=== PATIENT | female | born 1945 | race Two or more races ===

== ENCOUNTER 2016-10-06 17:45 | Inpatient (IN) | payer MEDICARE, MEDICAID ==
[~2016-10-06] VITALS: Ht 139.7 cm; Wt 54.4 kg
[2016-10-06] MEDS ORDERED: DONE5TAB30 PO (18:25)
[2016-10-06] MEDS ORDERED: BUDE10.22 INH (18:25)
[2016-10-06] MEDS ORDERED: CITA20TA9 PO (18:25)
[2016-10-06] MEDS ORDERED: CETI10CA PO (18:25)
[2016-10-06] MEDS ORDERED: CLON0.1T PO (18:25)
[2016-10-06] MEDS ORDERED: DIVA125T2 PO (18:25)
[2016-10-06 18:42] LABS: BLOOD UREA NITROGEN 12 mg/dL (7-18)
[2016-10-06] MEDS ORDERED: POTASSIUM CHLORIDE 20 MEQ TAB.ER.PRT ONE (18:58)
[2016-10-06] MEDS ORDERED: POTASSIUM CHLORIDE 20 MEQ TAB.ER.PRT PO ONE (19:00)
[2016-10-06] MEDS ORDERED: NS + 40MEQ KCL 1,000 ML IV SCH (20:30)
[2016-10-06] MEDS ORDERED: NS + 40MEQ KCL 1,000 ML IV ONE (20:41)
[2016-10-06] MEDS ORDERED: GUAIFENESIN/DM 200-20MG, 10ML UDC PO PRN (21:30)
[2016-10-06] MEDS ORDERED: ONDANSETRON 2MG/ML, 2ML IVPush PRN (21:30)
[2016-10-06 22:25] VITALS: BP 95/57
[2016-10-06] MEDS: DONEPEZIL 5 MG TABLET PO SCH (22:47)
[2016-10-06] MEDS: ENOXAPARIN 40 MG/0.4 ML SQ SCH (22:47)
[2016-10-07 06:35] LABS: BLOOD UREA NITROGEN 8 mg/dL (7-18)
[2016-10-07] MEDS: DIVALPROEX 125 MG TABLET.DR PO SCH ×2 (08:50→09:00)
[2016-10-07] MEDS: CITALOPRAM 20 MG TABLET PO SCH ×2 (08:50→09:00)
[2016-10-07] MEDS: CETIRIZINE 10 MG TABLET PO SCH ×2 (08:50→09:00)
[2016-10-07] MEDS: FAMOTIDINE 20 MG TABLET PO SCH ×4 (08:50→21:00)
[2016-10-07] MEDS: FLUTICASONE/VILANTEROL 100-25MCG/INH INH SCH (09:00)
[2016-10-07] MEDS: ENOXAPARIN 40 MG/0.4 ML SQ SCH (20:45)
[2016-10-07] MEDS: NS + 40MEQ KCL 1,000 ML IV SCH (20:45)
[2016-10-07] MEDS: DONEPEZIL 5 MG TABLET PO SCH (20:45)
[2016-10-07] MEDS: HALOPERIDOL 1 MG TABLET PO PRN (22:00)
[2016-10-08] MEDS ORDERED: LORazepam 2 MG/ML, 1ML ONE (01:33)
[2016-10-08 06:40] VITALS: BP 167/91
[2016-10-08 06:53] VITALS: BP 122/64
[2016-10-08 07:32] VITALS: BP 152/84
[2016-10-08] MEDS: CITALOPRAM 20 MG TABLET PO SCH (09:00)
[2016-10-08] MEDS: FLUTICASONE/VILANTEROL 100-25MCG/INH INH SCH (09:00)
[2016-10-08] MEDS: DIVALPROEX 125 MG TABLET.DR PO SCH (09:00)
[2016-10-08] MEDS: FAMOTIDINE 20 MG TABLET PO SCH (09:45)
[2016-10-08] MEDS: CETIRIZINE 10 MG TABLET PO SCH (09:45)
[2016-10-08 14:00] VITALS: BP 133/84
[2016-10-08 16:22] LABS: BLOOD UREA NITROGEN 7 mg/dL (7-18)
[2016-10-08 16:29] LABS: ASPARTATE AMINO TRANSFERASE 20 U/L (15-37)
[2016-10-08] MEDS: DIVALPROEX 125 MG CAP.SPRINK PO SCH ×2 (17:42→21:56)
[2016-10-08 20:00] VITALS: BP 151/84
[2016-10-08] MEDS: DONEPEZIL 5 MG TABLET PO SCH (21:56)
[2016-10-08] MEDS: ENOXAPARIN 40 MG/0.4 ML SQ SCH (21:56)
[2016-10-08] MEDS: NS + 40MEQ KCL 1,000 ML IV SCH ×2 (21:56→22:00)
[2016-10-09 02:00] VITALS: BP 168/94
[2016-10-09 06:57] LABS: BLOOD UREA NITROGEN 9 mg/dL (7-18)
[2016-10-09 08:14] VITALS: BP 111/76
[2016-10-09] MEDS: DIVALPROEX 125 MG CAP.SPRINK PO SCH ×2 (11:18→18:14)
[2016-10-09] MEDS: FAMOTIDINE 20 MG TABLET PO SCH ×2 (11:18→21:31)
[2016-10-09] MEDS: FLUTICASONE/VILANTEROL 100-25MCG/INH INH SCH (11:19)
[2016-10-09] MEDS: CETIRIZINE 10 MG TABLET PO SCH (11:19)
[2016-10-09 13:16] VITALS: BP 93/59
[2016-10-09] MEDS: ARIPIPRAZOLE 10 MG TABLET PO SCH (14:59)
[2016-10-09] MEDS ORDERED: DIVALPROEX 125 MG CAP.SPRINK PO SCH (17:00)
[2016-10-09 20:00] VITALS: BP 96/61
[2016-10-09] MEDS: ENOXAPARIN 40 MG/0.4 ML SQ SCH (21:31)
[2016-10-09] MEDS: ACETAMINOPHEN 325 MG TABLET PO PRN (21:31)
[2016-10-10 03:44] VITALS: BP 134/80
[2016-10-10 07:49] VITALS: BP 97/55
[2016-10-10] MEDS: ARIPIPRAZOLE 10 MG TABLET PO SCH (09:35)
[2016-10-10] MEDS: FAMOTIDINE 20 MG TABLET PO SCH ×2 (09:35→20:39)
[2016-10-10] MEDS: DIVALPROEX 125 MG CAP.SPRINK PO SCH ×3 (09:35→17:17)
[2016-10-10] MEDS: FLUTICASONE/VILANTEROL 100-25MCG/INH INH SCH (09:47)
[2016-10-10 14:47] VITALS: BP 134/68
[2016-10-10] MEDS: HALOPERIDOL 5 MG/ML IM PRN (17:45)
[2016-10-10 18:51] VITALS: BP 132/68
[2016-10-10] MEDS: ENOXAPARIN 40 MG/0.4 ML SQ SCH (20:39)
[2016-10-11 02:00] VITALS: BP 111/69
[2016-10-11 06:52] VITALS: BP 150/69
[2016-10-11] MEDS: DIVALPROEX 125 MG CAP.SPRINK PO SCH ×3 (10:02→16:57)
[2016-10-11] MEDS: ARIPIPRAZOLE 10 MG TABLET PO SCH (10:02)
[2016-10-11] MEDS: FLUTICASONE/VILANTEROL 100-25MCG/INH INH SCH (10:02)
[2016-10-11] MEDS: FAMOTIDINE 20 MG TABLET PO SCH ×2 (10:02→20:42)
[2016-10-11 10:52] LABS: ASPARTATE AMINO TRANSFERASE 13 U/L (15-37); BLOOD UREA NITROGEN 6 mg/dL (7-18)
[2016-10-11 11:46] LABS: BLOOD UREA NITROGEN 8 mg/dL (7-18)
[2016-10-11 14:15] VITALS: BP 113/67
[2016-10-11 18:49] VITALS: BP 115/72
[2016-10-11] MEDS: ENOXAPARIN 40 MG/0.4 ML SQ SCH (20:42)
[2016-10-12] MEDS: ACETAMINOPHEN 325 MG TABLET PO PRN (00:20)
[2016-10-12] MEDS ORDERED: POLYETHYLENE GLYCOL 17 GM PACKET PO PRN (03:30)
[2016-10-12 04:54] VITALS: BP 98/62
[2016-10-12 06:10] LABS: BLOOD UREA NITROGEN 14 mg/dL (7-18)
[2016-10-12 06:40] VITALS: BP 116/71
[2016-10-12] MEDS: ARIPIPRAZOLE 10 MG TABLET PO SCH (09:05)
[2016-10-12] MEDS: DIVALPROEX 125 MG CAP.SPRINK PO SCH ×3 (09:05→18:27)
[2016-10-12] MEDS: FAMOTIDINE 20 MG TABLET PO SCH ×2 (09:05→20:34)
[2016-10-12] MEDS: FLUTICASONE/VILANTEROL 100-25MCG/INH INH SCH (09:05)
[2016-10-12 12:24] VITALS: BP 156/85
[2016-10-12] MEDS: HALOPERIDOL 5 MG/ML IM PRN (12:59)
[2016-10-12] MEDS: HALOPERIDOL 1 MG TABLET PO PRN (19:15)
[2016-10-12] MEDS: ENOXAPARIN 40 MG/0.4 ML SQ SCH (20:34)
[2016-10-13 05:33] LABS: BLOOD UREA NITROGEN 10 mg/dL (7-18)
[2016-10-13 06:55] VITALS: BP 134/88
[2016-10-13] MEDS: FAMOTIDINE 20 MG TABLET PO SCH ×2 (08:10→21:37)
[2016-10-13] MEDS: ARIPIPRAZOLE 10 MG TABLET PO SCH (08:10)
[2016-10-13] MEDS: FLUTICASONE/VILANTEROL 100-25MCG/INH INH SCH (08:11)
[2016-10-13] MEDS: DIVALPROEX 125 MG CAP.SPRINK PO SCH ×3 (08:11→17:17)
[2016-10-13] MEDS ORDERED: POTASSIUM CHLORIDE 20 MEQ TAB.ER.PRT PO ONE (09:00)
[2016-10-13 12:55] VITALS: BP 112/71
[2016-10-13] MEDS: HALOPERIDOL 1 MG TABLET PO PRN ×2 (15:26→21:38)
[2016-10-13] MEDS: HALOPERIDOL 5 MG/ML IM PRN (17:12)
[2016-10-13 18:50] VITALS: BP 110/74
[2016-10-13] MEDS: ENOXAPARIN 40 MG/0.4 ML SQ SCH (21:38)
[2016-10-14 03:00] VITALS: BP 136/81
[2016-10-14 07:35] VITALS: BP 114/77
[2016-10-14] MEDS: FLUTICASONE/VILANTEROL 100-25MCG/INH INH SCH (07:45)
[2016-10-14] MEDS: DIVALPROEX 125 MG CAP.SPRINK PO SCH ×3 (07:45→17:01)
[2016-10-14] MEDS: ARIPIPRAZOLE 10 MG TABLET PO SCH (07:45)
[2016-10-14] MEDS: FAMOTIDINE 20 MG TABLET PO SCH ×2 (07:45→20:17)
[2016-10-14] MEDS ORDERED: ARIPIPRAZOLE 10 MG TABLET PO ONE (12:30)
[2016-10-14 13:19] VITALS: BP 119/72
[2016-10-14] MEDS: ENOXAPARIN 40 MG/0.4 ML SQ SCH (20:17)
[2016-10-14 20:24] VITALS: BP 111/72
[2016-10-14] MEDS: HALOPERIDOL 1 MG TABLET PO PRN (22:28)
[2016-10-15 03:30] VITALS: BP 125/68
[2016-10-15 07:53] VITALS: BP 102/70
[2016-10-15] MEDS: FAMOTIDINE 20 MG TABLET PO SCH ×2 (08:15→20:41)
[2016-10-15] MEDS: FLUTICASONE/VILANTEROL 100-25MCG/INH INH SCH (08:15)
[2016-10-15] MEDS: ARIPIPRAZOLE 10 MG TABLET PO SCH (08:15)
[2016-10-15] MEDS: DIVALPROEX 125 MG CAP.SPRINK PO SCH ×3 (08:15→16:42)
[2016-10-15 14:09] VITALS: BP 104/66
[2016-10-15 19:27] VITALS: BP 137/86
[2016-10-15] MEDS: ENOXAPARIN 40 MG/0.4 ML SQ SCH (20:41)
[2016-10-16 02:19] VITALS: BP 173/87
[2016-10-16 08:14] VITALS: BP 123/77
[2016-10-16] MEDS: FAMOTIDINE 20 MG TABLET PO SCH ×2 (10:49→20:07)
[2016-10-16] MEDS: FLUTICASONE/VILANTEROL 100-25MCG/INH INH SCH (10:49)
[2016-10-16] MEDS: ARIPIPRAZOLE 10 MG TABLET PO SCH (10:51)
[2016-10-16] MEDS: DIVALPROEX 125 MG CAP.SPRINK PO SCH ×3 (10:51→17:08)
[2016-10-16] MEDS ORDERED: ARIPIPRAZOLE 10 MG TABLET PO PRN (12:00)
[2016-10-16 14:01] VITALS: BP 123/71
[2016-10-16] MEDS ORDERED: ONDANSETRON ODT 4 MG ONE (20:02)
[2016-10-16 20:46] VITALS: BP 139/81
[2016-10-16] MEDS: ENOXAPARIN 40 MG/0.4 ML SQ SCH (21:30)
[2016-10-17 02:57] VITALS: BP 96/56
[2016-10-17 07:42] VITALS: BP 122/69
[2016-10-17] MEDS: ARIPIPRAZOLE 10 MG TABLET PO SCH (08:17)
[2016-10-17] MEDS: FLUTICASONE/VILANTEROL 100-25MCG/INH INH SCH (08:17)
[2016-10-17] MEDS: DIVALPROEX 125 MG CAP.SPRINK PO SCH ×3 (08:17→16:32)
[2016-10-17] MEDS: FAMOTIDINE 20 MG TABLET PO SCH ×2 (08:17→21:00)
[2016-10-17 13:00] VITALS: BP 98/58
[2016-10-17 19:16] VITALS: BP 134/80
[2016-10-17] MEDS: ENOXAPARIN 40 MG/0.4 ML SQ SCH (21:30)
[2016-10-18] MEDS ORDERED: ZIPRASIDONE 20 MG INJ IM ONE
[2016-10-18 02:38] VITALS: BP 131/80
[2016-10-18 05:59] LABS: BLOOD UREA NITROGEN 15 mg/dL (7-18)
[2016-10-18 08:02] VITALS: BP 139/80
[2016-10-18] MEDS: DIVALPROEX 125 MG CAP.SPRINK PO SCH ×3 (08:38→17:12)
[2016-10-18] MEDS: FAMOTIDINE 20 MG TABLET PO SCH ×2 (08:38→21:04)
[2016-10-18] MEDS: ARIPIPRAZOLE 10 MG TABLET PO SCH (08:38)
[2016-10-18] MEDS: FLUTICASONE/VILANTEROL 100-25MCG/INH INH SCH (08:38)
[2016-10-18] MEDS: ARIPIPRAZOLE 5 MG TABLET PO SCH (12:00)
[2016-10-18 15:04] VITALS: BP 133/54
[2016-10-18 18:51] VITALS: BP 169/87
[2016-10-18] MEDS: ENOXAPARIN 40 MG/0.4 ML SQ SCH (21:04)
[2016-10-18] MEDS: ARIPIPRAZOLE 5 MG TABLET PO PRN (21:05)
[2016-10-19 00:58] VITALS: BP 125/72
[2016-10-19 05:29] LABS: BLOOD UREA NITROGEN 12 mg/dL (7-18)
[2016-10-19 08:00] VITALS: BP 140/84
[2016-10-19] MEDS: ARIPIPRAZOLE 10 MG TABLET PO SCH (08:23)
[2016-10-19] MEDS: DIVALPROEX 125 MG CAP.SPRINK PO SCH ×3 (08:23→17:33)
[2016-10-19] MEDS: FAMOTIDINE 20 MG TABLET PO SCH ×2 (08:23→20:35)
[2016-10-19] MEDS: FLUTICASONE/VILANTEROL 100-25MCG/INH INH SCH (08:23)
[2016-10-19] MEDS: ARIPIPRAZOLE 5 MG TABLET PO SCH (11:12)
[2016-10-19 13:40] VITALS: BP 115/74
[2016-10-19 19:29] VITALS: BP 160/88
[2016-10-19] MEDS: ARIPIPRAZOLE 5 MG TABLET PO PRN (20:35)
[2016-10-19] MEDS: ENOXAPARIN 40 MG/0.4 ML SQ SCH (20:35)
[2016-10-20 01:41] VITALS: BP 141/80
[2016-10-20 05:12] LABS: BLOOD UREA NITROGEN 15 mg/dL (7-18)
[2016-10-20 07:44] VITALS: BP 147/83
[2016-10-20] MEDS: FAMOTIDINE 20 MG TABLET PO SCH ×3 (09:05→20:08)
[2016-10-20] MEDS: ARIPIPRAZOLE 10 MG TABLET PO SCH (09:06)
[2016-10-20] MEDS: FLUTICASONE/VILANTEROL 100-25MCG/INH INH SCH (09:06)
[2016-10-20] MEDS: DIVALPROEX 125 MG CAP.SPRINK PO SCH ×3 (09:06→17:27)
[2016-10-20] MEDS: ARIPIPRAZOLE 5 MG TABLET PO SCH ×2 (12:00→12:44)
[2016-10-20 13:53] VITALS: BP 139/84
[2016-10-20 19:20] VITALS: BP 154/95
[2016-10-20] MEDS: ENOXAPARIN 40 MG/0.4 ML SQ SCH (20:05)
[2016-10-21 01:03] VITALS: BP 145/93
[2016-10-21] MEDS: DIVALPROEX 125 MG CAP.SPRINK PO SCH ×4 (07:30→17:33)
[2016-10-21] MEDS: FAMOTIDINE 20 MG TABLET PO SCH ×2 (07:56→21:00)
[2016-10-21] MEDS: FLUTICASONE/VILANTEROL 100-25MCG/INH INH SCH ×2 (07:56→08:08)
[2016-10-21] MEDS: ARIPIPRAZOLE 10 MG TABLET PO SCH ×2 (07:57→08:08)
[2016-10-21 08:22] VITALS: BP 140/90
[2016-10-21] MEDS: ARIPIPRAZOLE 5 MG TABLET PO SCH (12:00)
[2016-10-21 14:44] VITALS: BP 143/82
[2016-10-21] MEDS: HALOPERIDOL 5 MG/ML IM PRN ×2 (15:01→18:22)
[2016-10-21 18:41] VITALS: BP 118/79
[2016-10-21] MEDS: ENOXAPARIN 40 MG/0.4 ML SQ SCH (19:58)
[2016-10-22 07:25] VITALS: BP 124/55
[2016-10-22] MEDS: DIVALPROEX 125 MG CAP.SPRINK PO SCH ×3 (08:32→17:24)
[2016-10-22] MEDS: FAMOTIDINE 20 MG TABLET PO SCH ×2 (08:32→20:40)
[2016-10-22] MEDS: ARIPIPRAZOLE 10 MG TABLET PO SCH (08:32)
[2016-10-22] MEDS: FLUTICASONE/VILANTEROL 100-25MCG/INH INH SCH (08:32)
[2016-10-22] MEDS: ARIPIPRAZOLE 5 MG TABLET PO SCH (11:41)
[2016-10-22 12:45] VITALS: BP 111/75
[2016-10-22 20:36] VITALS: BP 103/76
[2016-10-22] MEDS: ENOXAPARIN 40 MG/0.4 ML SQ SCH (20:40)
[2016-10-23 02:30] VITALS: BP 120/71
[2016-10-23 06:14] LABS: ASPARTATE AMINO TRANSFERASE 15 U/L (15-37); BLOOD UREA NITROGEN 18 mg/dL (7-18)
[2016-10-23 08:09] VITALS: BP 107/63
[2016-10-23] MEDS: FAMOTIDINE 20 MG TABLET PO SCH ×2 (08:37→21:13)
[2016-10-23] MEDS: DIVALPROEX 125 MG CAP.SPRINK PO SCH ×3 (08:37→17:35)
[2016-10-23] MEDS: FLUTICASONE/VILANTEROL 100-25MCG/INH INH SCH (08:38)
[2016-10-23] MEDS: ARIPIPRAZOLE 10 MG TABLET PO SCH (08:38)
[2016-10-23] MEDS: HALOPERIDOL 5 MG/ML IM PRN (09:04)
[2016-10-23] MEDS: ARIPIPRAZOLE 5 MG TABLET PO SCH (12:00)
[2016-10-23 12:42] VITALS: BP 136/84
[2016-10-23] MEDS ORDERED: ALBUTEROL/IPRATROPIUM 2.5MG/0.5MG, 3 ML NPPB PRN (14:30)
[2016-10-23 21:04] VITALS: BP 125/82
[2016-10-23] MEDS: ENOXAPARIN 40 MG/0.4 ML SQ SCH (21:13)
[2016-10-24 01:48] VITALS: BP 136/80
[2016-10-24 07:42] VITALS: BP 137/82
[2016-10-24] MEDS: ARIPIPRAZOLE 15 MG TABLET PO SCH ×2 (09:00→12:14)
[2016-10-24] MEDS: DIVALPROEX 125 MG CAP.SPRINK PO SCH ×3 (09:23→18:02)
[2016-10-24] MEDS: FAMOTIDINE 20 MG TABLET PO SCH ×2 (09:24→21:05)
[2016-10-24] MEDS: ARIPIPRAZOLE 5 MG TABLET PO SCH (12:00)
[2016-10-24 12:17] VITALS: BP 144/80
[2016-10-24 18:43] VITALS: BP 150/88
[2016-10-24] MEDS: ENOXAPARIN 40 MG/0.4 ML SQ SCH (21:03)
[2016-10-25 01:48] VITALS: BP 147/85
[2016-10-25 07:58] VITALS: BP 143/90
[2016-10-25] MEDS: DIVALPROEX 125 MG CAP.SPRINK PO SCH ×3 (08:05→17:00)
[2016-10-25] MEDS: FAMOTIDINE 20 MG TABLET PO SCH ×2 (08:05→21:06)
[2016-10-25] MEDS: ARIPIPRAZOLE 5 MG TABLET PO SCH (12:00)
[2016-10-25 13:50] VITALS: BP 121/72
[2016-10-25] MEDS: ENOXAPARIN 40 MG/0.4 ML SQ SCH (21:06)
[2016-10-25] MEDS: HALOPERIDOL 5 MG/ML IM PRN (21:06)
[2016-10-25 21:33] VITALS: BP 125/84
[2016-10-26 02:28] VITALS: BP 154/90
[2016-10-26 07:58] VITALS: BP 113/82
[2016-10-26] MEDS: DIVALPROEX 125 MG CAP.SPRINK PO SCH ×3 (08:41→17:00)
[2016-10-26] MEDS: FAMOTIDINE 20 MG TABLET PO SCH ×2 (08:41→21:08)
[2016-10-26] MEDS: ARIPIPRAZOLE 15 MG TABLET PO SCH (08:42)
[2016-10-26] MEDS: ARIPIPRAZOLE 5 MG TABLET PO SCH (12:00)
[2016-10-26 12:54] VITALS: BP 108/70
[2016-10-26] MEDS: HALOPERIDOL 5 MG/ML IM PRN (19:48)
[2016-10-26 20:32] VITALS: BP 148/98
[2016-10-26] MEDS: ENOXAPARIN 40 MG/0.4 ML SQ SCH (21:08)
[2016-10-27 01:31] VITALS: BP 135/86
[2016-10-27] MEDS: FAMOTIDINE 20 MG TABLET PO SCH ×3 (07:13→21:11)
[2016-10-27] MEDS: ARIPIPRAZOLE 15 MG TABLET PO SCH (07:13)
[2016-10-27] MEDS: DIVALPROEX 125 MG CAP.SPRINK PO SCH ×3 (07:13→17:47)
[2016-10-27] MEDS: ARIPIPRAZOLE 5 MG TABLET PO SCH (12:00)
[2016-10-27 14:38] VITALS: BP 108/75
[2016-10-27] MEDS: HALOPERIDOL 5 MG/ML IM PRN (21:27)
[2016-10-27] MEDS: ENOXAPARIN 40 MG/0.4 ML SQ SCH (21:30)
[2016-10-27] MEDS ORDERED: ZIPRASIDONE 20 MG INJ IM ONE (22:30)
[2016-10-27] MEDS ORDERED: ONDANSETRON 2MG/ML, 2ML IVPush PRN (22:30)
[2016-10-28 03:22] VITALS: BP 135/85
[2016-10-28 06:20] LABS: ASPARTATE AMINO TRANSFERASE 24 U/L (15-37); BLOOD UREA NITROGEN 19 mg/dL (7-18)
[2016-10-28 06:40] VITALS: BP 120/82
[2016-10-28] MEDS ORDERED: POTASSIUM CHLORIDE 20 MEQ TAB.ER.PRT PO ONE (07:30)
[2016-10-28] MEDS: FAMOTIDINE 20 MG TABLET PO SCH ×2 (08:23→20:47)
[2016-10-28] MEDS: DIVALPROEX 125 MG CAP.SPRINK PO SCH ×3 (08:23→17:14)
[2016-10-28] MEDS: ARIPIPRAZOLE 15 MG TABLET PO SCH (08:24)
[2016-10-28] MEDS: ARIPIPRAZOLE 5 MG TABLET PO SCH (12:55)
[2016-10-28 13:15] VITALS: BP 147/78
[2016-10-28 19:33] VITALS: BP 124/83
[2016-10-29 07:32] VITALS: BP 148/80
[2016-10-29] MEDS: DIVALPROEX 125 MG CAP.SPRINK PO SCH ×3 (08:29→20:44)
[2016-10-29] MEDS: FAMOTIDINE 20 MG TABLET PO SCH ×2 (08:29→20:44)
[2016-10-29] MEDS: ARIPIPRAZOLE 15 MG TABLET PO SCH (08:29)
[2016-10-29 11:29] LABS: BLOOD UREA NITROGEN 22 mg/dL (7-18)
[2016-10-29] MEDS: ARIPIPRAZOLE 5 MG TABLET PO SCH (12:20)
[2016-10-29 12:35] VITALS: BP 119/83
[2016-10-29 19:31] VITALS: BP 130/81
[2016-10-30] MEDS ORDERED: ARIPIPRAZOLE 10 MG TABLET PO SCH (09:00)
[2016-10-30 09:05] VITALS: BP 127/94
[2016-10-30] MEDS: DIVALPROEX 125 MG CAP.SPRINK PO SCH ×3 (09:06→20:48)
[2016-10-30] MEDS: FAMOTIDINE 20 MG TABLET PO SCH ×2 (09:06→20:48)
[2016-10-30 13:10] VITALS: BP 115/74
[2016-10-30] MEDS: ARIPIPRAZOLE 10 MG TABLET PO SCH ×2 (16:58→20:48)
[2016-10-30 19:21] VITALS: BP 141/94
[2016-10-31 03:00] VITALS: BP 101/56
[2016-10-31 06:52] LABS: BLOOD UREA NITROGEN 23 mg/dL (7-18)
[2016-10-31 07:39] VITALS: BP 112/75
[2016-10-31] MEDS: DIVALPROEX 125 MG CAP.SPRINK PO SCH ×3 (08:23→20:56)
[2016-10-31] MEDS: FAMOTIDINE 20 MG TABLET PO SCH ×2 (08:23→20:56)
[2016-10-31] MEDS: ARIPIPRAZOLE 10 MG TABLET PO SCH ×4 (08:23→21:43)
[2016-10-31 12:50] VITALS: BP 121/78
[2016-10-31 19:10] VITALS: BP 106/53
[2016-10-31] MEDS: HALOPERIDOL 5 MG/ML IM PRN (22:14)
[2016-11-01 03:30] VITALS: BP 123/90
[2016-11-01] MEDS: HALOPERIDOL 5 MG/ML IM PRN ×2 (04:56→19:56)
[2016-11-01 05:06] LABS: SRA, LOW DOSE HEPARIN 3 % (0-20)
[2016-11-01 06:45] VITALS: BP 97/62
[2016-11-01] MEDS ORDERED: DOCUSATE 100 MG CAPSULE ONE (07:59)
[2016-11-01] MEDS: FAMOTIDINE 20 MG TABLET PO SCH ×2 (08:01→22:17)
[2016-11-01] MEDS: DOCUSATE 100 MG CAPSULE PO SCH ×2 (08:01→22:17)
[2016-11-01] MEDS: ARIPIPRAZOLE 10 MG TABLET PO SCH ×3 (08:02→22:17)
[2016-11-01] MEDS: DIVALPROEX 125 MG CAP.SPRINK PO SCH ×2 (08:02→22:17)
[2016-11-01 14:30] VITALS: BP 109/74
[2016-11-01] MEDS: ACETAMINOPHEN 325 MG TABLET PO PRN (14:42)
[2016-11-01 19:29] VITALS: BP 113/68
[2016-11-02 05:25] VITALS: BP 118/75
[2016-11-02 07:14] VITALS: BP 120/82
[2016-11-02] MEDS: FAMOTIDINE 20 MG TABLET PO SCH ×2 (08:55→20:35)
[2016-11-02] MEDS: DIVALPROEX 125 MG CAP.SPRINK PO SCH ×2 (08:55→20:35)
[2016-11-02] MEDS: DOCUSATE 100 MG CAPSULE PO SCH ×2 (08:55→20:35)
[2016-11-02] MEDS: ARIPIPRAZOLE 10 MG TABLET PO SCH ×3 (08:56→20:34)
[2016-11-02 14:32] VITALS: BP 129/86
[2016-11-02] MEDS: HALOPERIDOL 5 MG/ML IM PRN (17:23)
[2016-11-02 19:55] VITALS: BP 141/98
[2016-11-03 02:37] VITALS: BP 105/67
[2016-11-03 07:05] VITALS: BP 117/69
[2016-11-03] MEDS: HALOPERIDOL 5 MG/ML IM PRN ×2 (08:07→15:23)
[2016-11-03] MEDS: DIVALPROEX 125 MG CAP.SPRINK PO SCH ×2 (08:08→21:05)
[2016-11-03] MEDS: DOCUSATE 100 MG CAPSULE PO SCH ×2 (08:08→21:05)
[2016-11-03] MEDS: FAMOTIDINE 20 MG TABLET PO SCH ×2 (08:08→21:06)
[2016-11-03] MEDS: ARIPIPRAZOLE 10 MG TABLET PO SCH ×3 (08:08→21:06)
[2016-11-03 14:53] VITALS: BP 121/84
[2016-11-03] MEDS ORDERED: HALOPERIDOL 5 MG/ML IM ONE (17:00)
[2016-11-03 19:10] VITALS: BP 129/82
[2016-11-04 01:06] VITALS: BP 120/76
[2016-11-04 05:32] LABS: BLOOD UREA NITROGEN 13 mg/dL (7-18)
[2016-11-04 08:33] VITALS: BP 118/76
[2016-11-04] MEDS: DIVALPROEX 125 MG CAP.SPRINK PO SCH ×2 (08:52→19:44)
[2016-11-04] MEDS: DOCUSATE 100 MG CAPSULE PO SCH ×2 (08:52→19:43)
[2016-11-04] MEDS: ARIPIPRAZOLE 10 MG TABLET PO SCH ×3 (08:52→20:48)
[2016-11-04] MEDS: FAMOTIDINE 20 MG TABLET PO SCH ×2 (08:52→19:43)
[2016-11-04 12:42] VITALS: BP 110/72
[2016-11-04 19:09] VITALS: BP 107/62
[2016-11-04 23:00] VITALS: BP 102/69
[2016-11-05 01:01] VITALS: BP 102/69
[2016-11-05] MEDS: DIVALPROEX 125 MG CAP.SPRINK PO SCH ×2 (07:49→19:35)
[2016-11-05] MEDS: ARIPIPRAZOLE 10 MG TABLET PO SCH ×3 (07:49→19:35)
[2016-11-05] MEDS: FAMOTIDINE 20 MG TABLET PO SCH ×2 (07:49→19:35)
[2016-11-05 08:00] VITALS: BP 120/77
[2016-11-05] MEDS: DOCUSATE 100 MG CAPSULE PO SCH ×2 (08:00→19:35)
[2016-11-05 16:15] VITALS: BP 102/66
[2016-11-05 19:01] VITALS: BP 124/95
[2016-11-06 05:22] VITALS: BP 151/87
[2016-11-06 07:14] VITALS: BP 114/75
[2016-11-06] MEDS: DIVALPROEX 125 MG CAP.SPRINK PO SCH ×2 (10:13→21:10)
[2016-11-06] MEDS: ARIPIPRAZOLE 10 MG TABLET PO SCH ×3 (10:13→21:10)
[2016-11-06] MEDS: DOCUSATE 100 MG CAPSULE PO SCH ×2 (10:13→21:10)
[2016-11-06] MEDS: FAMOTIDINE 20 MG TABLET PO SCH ×2 (10:13→21:10)
[2016-11-06 12:54] VITALS: BP 166/82
[2016-11-06 18:58] VITALS: BP 128/81
[2016-11-07 02:55] VITALS: BP 93/62
[2016-11-07 07:47] VITALS: BP 128/83
[2016-11-07] MEDS: FAMOTIDINE 20 MG TABLET PO SCH (09:19)
[2016-11-07] MEDS: DIVALPROEX 125 MG CAP.SPRINK PO SCH (09:20)
[2016-11-07] MEDS: ARIPIPRAZOLE 10 MG TABLET PO SCH (09:20)
[2016-11-07] MEDS: DOCUSATE 100 MG CAPSULE PO SCH (09:20)
[2016-11-07 12:42] VITALS: BP 132/84
[2016-11-07] MEDS ORDERED: DIVA125C PO (15:39)
[2016-11-07] MEDS ORDERED: ARIP10TA13 PO (15:39)
== END 2016-11-07 17:07 | disposition home or self-care (01) | DRG 884 ==
LOC: ED 20:19 → EDIP 20:30 → 4EST 21:59 → 4WST 10-13 16:30 → 3NE 10-25 03:00
PROVIDERS: ADMIT Internal Medicine
PROC: 0T9B70Z Drainage of Bladder with Drainage Device, Via Natural or Artificial Opening (ICD-10-PCS; principal; 2016-10-06)
DX: F03.91 Unspecified dementia, unspecified severity, with behavioral disturbance (principal); G93.40 Encephalopathy, unspecified; E44.1 Mild protein-calorie malnutrition; F31.2 Bipolar disorder, current episode manic severe with psychotic features; R44.0 Auditory hallucinations; E87.6 Hypokalemia; R45.1 Restlessness and agitation; I10 Essential (primary) hypertension; T42.6X5A Adverse effect of other antiepileptic and sedative-hypnotic drugs, initial encounter; D69.59 Other secondary thrombocytopenia; E11.65 Type 2 diabetes mellitus with hyperglycemia; F09 Unspecified mental disorder due to known physiological condition; J44.9 Chronic obstructive pulmonary disease, unspecified; Z87.440 Personal history of urinary (tract) infections; Z78.1 Physical restraint status; Z79.899 Other long term (current) drug therapy; Z81.8 Family history of other mental and behavioral disorders; Z87.891 Personal history of nicotine dependence; Z90.49 Acquired absence of other specified parts of digestive tract; Z91.14 Patient's other noncompliance with medication regimen; Z88.5 Allergy status to narcotic agent; Z88.8 Allergy status to other drugs, medicaments and biological substances; Z68.27 Body mass index [BMI] 27.0-27.9, adult; Z91.83 Wandering in diseases classified elsewhere
CPT/HCPCS: 36415; 80048; 80053; 80164; 81003; 82040; 82542; 82565; 83036; 83735; 84443; 85025; 93005; 99285; J1650; J2405; J3486; J1630; J3480